=== PATIENT | female | born 1990 | race Caucasian/White ===

== ENCOUNTER 2016-08-31 12:35 | Emergency (ER) | payer OTHER ==
[~2016-08-31] VITALS: Ht 162.6 cm; Wt 74.8 kg
[2016-08-31 13:04] LABS: URINE BILIRUBIN NEGATIVE (Negative); URINE BLOOD NEGATIVE (Negative); URINE COLOR YELLOW; URINE GLUCOSE-RANDOM* NEGATIVE (Negative); URINE KETONES NEGATIVE (Negative); URINE NITRITE NEGATIVE (Negative); URINE PROTEIN (DIPSTICK) NEGATIVE (Negative); URINE UROBILINOGEN 0.2 E.U./dl (0.2-1.0)
[2016-08-31] MEDS ORDERED: BUTALB-APAP-CA1 EACH PO (13:06)
[2016-08-31 13:52] LABS: ABSOLUTE NEUTROPHILS 4.8 thou/uL (1.4-8.2); BASOPHILS 0.6 % (0.0-2.0); EOSINOPHILS 1.1 % (0.0-3.0); HEMATOCRIT 45.1 % (37.0-47.0); HEMOGLOBIN 15.7 gm/dL (12.0-15.0); LYMPHOCYTES 21.9 % (24.0-44.0); MCH 29.6 pg (26.0-34.0); MCHC 34.9 g/dL (28.0-37.0); MCV 84.8 fL (80.0-100.0); MONOCYTES 6.1 % (1.0-8.0); PLATELET COUNT 306 thou/uL (150-400); POLYS 70.3 % (36.0-66.0); RBC 5.32 mil/uL (4.20-5.00); RDW 12.5 % (10.5-14.5); WBC 6.8 thou/uL (4.0-11.0)
[2016-08-31 13:54] LABS: MANUAL DIFF NO
[2016-08-31 14:00] LABS: CALCIUM 9.1 mg/dL (8.5-10.1); CREATININE 0.8 mg/dL (0.6-1.0); POTASSIUM 4.1 mmol/L (3.5-5.1)
[2016-08-31 14:06] LABS: ALBUMIN 3.9 g/dL (3.4-5.0); TOTAL BILIRUBIN 0.5 mg/dL (<0.1-1.0); TOTAL PROTEIN 7.8 g/dL (6.4-8.2)
[2016-08-31] MEDS ORDERED: ONDANSETRON HCL4 M2 PO (15:21)
[2016-08-31 16:19] VITALS: BP 118/78
== END 2016-08-31 16:20 | disposition home or self-care (01) ==
LOC: ER 12:35
PROVIDERS: Nurse Practitioner Family
DX: G43.819 Other migraine, intractable, without status migrainosus (principal); H53.131 Sudden visual loss, right eye; Z90.89 Acquired absence of other organs; Z87.891 Personal history of nicotine dependence

== ENCOUNTER 2017-02-25 12:47 | Emergency (ER) | payer OTHER ==
[~2017-02-25] VITALS: Ht 167.6 cm; Wt 63.5 kg
[~2017-02-25 12:47] MED LIST: BUTALB-APAP-CA1 EACH PO; ONDANSETRON HCL4 M2 PO
[2017-02-25] MEDS ORDERED: MOBIC7.5 MG PO (15:04)
[2017-02-25 19:08] VITALS: BP 140/86
== END 2017-02-25 16:22 | disposition home or self-care (01) ==
LOC: ER 12:47
DX: M72.2 Plantar fascial fibromatosis (principal); M77.52 Other enthesopathy of left foot and ankle; F10.99 Alcohol use, unspecified with unspecified alcohol-induced disorder; Z87.891 Personal history of nicotine dependence

== ENCOUNTER 2021-05-16 07:56 | Emergency (ER) | payer OTHER ==
[~2021-05-16] VITALS: Ht 160 cm; Wt 104.3 kg
[~2021-05-16 07:56] MED LIST changes: +MOBIC7.5 MG PO
[2021-05-16 08:05] VITALS: BP 116/77
[2021-05-16] MEDS ORDERED: DECADRON4 MG PO (08:49)
== END 2021-05-16 09:33 | disposition home or self-care (01) ==
LOC: ER 07:56
DX: J02.9 Acute pharyngitis, unspecified (principal); Z90.49 Acquired absence of other specified parts of digestive tract; Z79.899 Other long term (current) drug therapy; Z87.891 Personal history of nicotine dependence